=== PATIENT | male | born 1965 | race Caucasian/White ===

== ENCOUNTER → 2018-03-05 11:28 | Outpatient (CLI) | payer MEDICAID, SELFPAY ==
[2018-03-05 11:50] LABS: Basophils % 0.8 % (0.1-2.0); Eosinophils # 0.3 K/mm3 (0.0-0.4); Eosinophils % 6.6 % (0.1-12.0); Hematocrit 36.5 % (42.0-52.0); Hemoglobin 11.6 g/dL (14.1-18.0); Lymphocytes # 1.6 K/mm3 (0.7-4.5); Lymphocytes % 39.2 K/mm3 (10-50); Mean Corpuscular HGB Conc 31.9 g/dL (31.8-35.4); Mean Corpuscular Volume 97.1 fl (80-94); Mean Platelet Volume 7.7 fl (7.4-10.4); Monocytes # 0.4 K/mm3 (0.1-1.0); Monocytes % 10.4 % (1.7-9.3); Neutrophils # 1.8 K/mm3 (1.8-7.8); Neutrophils % 42.9 % (37.0-80.0); Platelet Count 248 K/mm3 (142-424); Red Blood Count 3.76 M/mm3 (4.60-6.20); Red Cell Distribution Width 15.2 % (11.5-17.5); White Blood Count 4.2 K/mm3 (4.8-10.8)
[2018-03-05 13:21] LABS: Alanine Aminotransferase 18 U/L (12-78); Albumin Level 3.4 gm/dL (3.4-5.0); Albumin/Globulin Ratio 0.8 (1.1-1.8); Alkaline Phosphatase 116 U/L (46-116); Anion Gap 14.3 mEq/L (5-15); Aspartate Amino Transferase 18 U/L (15-37); Bilirubin,Total 0.3 mg/dL (0.2-1.0); Blood Urea Nitrogen 9 mg/dL (7-18); C-Reactive Protein 1.9 mg/L (0.0-0.9); Calcium 8.7 mg/dL (8.5-10.1); Carbon Dioxide 27 mmol/L (21.0-32.0); Chloride 104 mmol/L (98-107); Creatinine,Serum 0.82 mg/dL (0.70-1.30); Estimated Glomerular Filt Rate 99 ml/min (>60); GFR (African American) 119 ML/MIN (>60); Globulin 4.2 gm/dl (1.3-3.2); Glucose 96 mg/dL (74-106); Potassium 4.3 mmoL/L (3.5-5.1); Sodium 141 mmol/L (136-145); Total Protein,Serum 7.6 gm/dL (6.4-8.2)
[2018-03-05 13:35] LABS: Vancomycin,Trough 10.5 mcg/ml (10.0-20.0)
[2018-03-05 17:06] LABS: Erythrocyte Sedimentation Rate 35 mm/hr (0-20)
== END ==
PROVIDERS: Visit Provider Internal Medicine
DX: R78.81 Bacteremia (principal)
CPT/HCPCS: 80053; 80202; 85025; 85651; 86140

== ENCOUNTER → 2018-03-12 12:51 | Outpatient (CLI) | payer MEDICAID, SELFPAY ==
[2018-03-12 13:44] LABS: Anion Gap 12.6 mEq/L (5-15); Blood Urea Nitrogen 12 mg/dL (7-18); Calcium 8.8 mg/dL (8.5-10.1); Carbon Dioxide 29 mmol/L (21.0-32.0); Chloride 101 mmol/L (98-107); Creatinine,Serum 0.67 mg/dL (0.70-1.30); Estimated Glomerular Filt Rate 125 ml/min (>60); GFR (African American) 151 ML/MIN (>60); Glucose 96 mg/dL (74-106); Potassium 3.6 mmoL/L (3.5-5.1); Sodium 139 mmol/L (136-145)
[2018-03-12 13:50] LABS: Vancomycin,Trough 9.9 mcg/ml (10.0-20.0)
== END ==
PROVIDERS: PCP Internal Medicine; Visit Provider Internal Medicine
DX: R78.81 Bacteremia (principal)
CPT/HCPCS: 80048; 80202

== ENCOUNTER 2023-12-26 22:18 | Emergency (ER) | payer MEDICAID, SELFPAY ==
[2023-12-26 22:30] VITALS: BP 110/81; PULSE 81; RESP 18; TEMP 36.5; O2SAT 100; BMI 21.2
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
[2023-12-26 22:56] LABS: Basophils # 0.1 K/mm3 (0-0.2); Basophils % 1.3 % (0.1-2.0); Eosinophils # 0.3 K/mm3 (0.0-0.4); Eosinophils % 4.4 % (0.1-12.0); Hematocrit 44.5 % (42.0-52.0); Hemoglobin 14.2 g/dL (14.1-18.0); Lymphocytes # 1.6 K/mm3 (0.7-4.5); Lymphocytes % 24.6 % (10-50); Mean Corpuscular HGB Conc 31.8 g/dL (31.8-35.4); Mean Corpuscular Volume 103.8 fl (80-94); Monocytes # 0.4 K/mm3 (0.1-1.0); Monocytes % 6.3 % (1.7-9.3); Neutrophils # 4.2 K/mm3 (1.8-7.8); Neutrophils % 63.5 % (37.0-80.0); Platelet Count 264 K/mm3 (142-424); Red Blood Count 4.29 M/mm3 (4.60-6.20); Red Cell Distribution Width 14.4 % (11.5-17.5); White Blood Count 6.6 K/mm3 (4.8-10.8)
[2023-12-26 23:05] LABS: Alanine Aminotransferase 39 U/L (12-78); Albumin Level 4.2 g/dl (3.5-5.0); Albumin/Globulin Ratio 1.4 (1.1-1.8); Alkaline Phosphatase 74 U/L (38-126); Anion Gap 12.7 mEq/L (5-15); Aspartate Amino Transferase 52 U/L (17-59); Bilirubin,Total 0.5 mg/dl (0.2-1.3); Blood Urea Nitrogen 15 mg/dl (9-20); Calcium 9.1 mg/dl (8.4-10.2); Carbon Dioxide 26 mmol/L (22.0-30.0); Chloride 108 mmol/L (98-107); Creatinine Clearance Estimated 76 mL/min (50-200); Estimated Glomerular Filt Rate 77 ml/min (>60); GFR (African American) 93 ML/MIN (>60); Globulin 3.1 g/dL (1.3-3.2); Glucose 71 mg/dl (74-100); Potassium 3.7 mmoL/L (3.5-5.1); Sodium 143 mmol/L (136-145); Total Protein,Serum 7.3 g/dl (6.3-8.2)
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
--- NOTE | 2023-12-26 23:24 | PC.NURSE ---
Report called to Anastacia at ER
[2023-12-26 23:46] VITALS: BP 128/73; PULSE 77; RESP 18; TEMP 36.5; O2SAT 99
--- NOTE | 2023-12-26 23:48 | PC.NURSE ---
Pt's son called and updated
== END 2023-12-26 23:50 | disposition short-term general hospital (02) ==
PROVIDERS: Physician Assistant; Emergency Provider Emergency Medicine; PCP Family Medicine
DX: S82.301A Unspecified fracture of lower end of right tibia, initial encounter for closed fracture (principal); S82.831A Other fracture of upper and lower end of right fibula, initial encounter for closed fracture; F17.210 Nicotine dependence, cigarettes, uncomplicated; V86.55XA Driver of 3- or 4- wheeled all-terrain vehicle (ATV) injured in nontraffic accident, initial encounter; Y92.9 Unspecified place or not applicable
CPT/HCPCS: 29505; 73560; 73590; 73610; 80053; 85025; 96374; 96376; 99285; J2270

== ENCOUNTER 2024-12-06 05:58 | Emergency (ER) | payer MEDICAID, SELFPAY ==
[2024-12-06 06:03] VITALS: BP 135/94; PULSE 82; RESP 18; TEMP 36.7; O2SAT 99
--- NOTE | 2024-12-06 06:06 | HMH.EDGENADL ---
Discharge Plan Disposition Patient Disposition: Home, Self-Care Prescriptions Prescriptions: New epinephrine [EpiPen 2-Xavier] 0.3 mg/0.3 mL auto-injector 0.3 mg IM Q10M PRN (Reason: anaphylaxis) Qty: 2 0RF Rx Instructions: for 2 doses Referrals Follow up/Referrals: Matheus Muir MD [Primary Care Provider, Medical] - See instructions Activity Restrictions/Add. Instructions Additional Instructions/Restrictions: Please follow-up with your primary care provider. Please return to the emergency department if you develop any new or worsening symptoms or become concerned for your health. Clinical Impressions Clinical Impression: Allergic reaction to bee sting Print Language Print Language: Albanian Discharge ED Provider: Cassius Gardiner General Adult HPI General Chief complaint: Allergic Reaction Stated complaint: bee sting R arm, allergic Time Seen by Provider: 12/06/24 06:00 History of Present Illness HPI narrative: 59-year-old male without significant past medical history presents for bee sting to the right arm. He reports the bee sting happened yesterday. 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 He presents today because he is feeling a little dizzy and is concerned it could be the bee sting. He denies any headache, nausea vomiting, diarrhea, tongue or throat swelling. He reports swelling at the site of the sting but otherwise has no symptoms besides mild dizziness. He denies any chest pain abdominal pain shortness of breath. Denies any other concerns. Related Data Previous Rx's ?Medication ?Instructions ?Recorded epinephrine 0.3 mg/0.3 mL 0.3 mg (0.3 mL) IM Q10M PRN 12/06/24 injection, auto-injector (EpiPen anaphylaxis #2 ea 2-Xavier) Allergies Allergy/AdvReac Type Severity Reaction Status Date / Time No Known Allergies Allergy Unverified 04/21/17 14:40 [facility] Disclaimer: The information contained in this section may have been updated after the patient was seen, as this information can be updated by other users. Social History (Updated 12/26/23 @ 23:30 by ELIZABETH Rodriguez) Smoking Status: Current every day smoker alcohol intake: never current occupational status: other Travel in the last 8 weeks?: None Have you lived/traveled outside [place] in past 30 days?: No Contact w/someone who lives/traveled outside US past 30 days?: No Exposure to someone with infectious disease in past 14 days?: No Do you have a fever (greater than 100.4 F or 38 C)?: No Have you tested positive for COVID-19?: No Exposed to someone with COVID-19 in past 14 days?: No Do you have a sore throat?: No Do you have a cough?: No Do you have any weakness?: No Do you have any diarrhea?: No Are you experiencing any unusual bleeding?: No Do you have any muscle aches/pain?: No Do you have any abdominal pain?: No Are you experiencing loss of taste or smell?: No ROS Obtained: Yes All systems reviewed & no additional complaints except as documented Physical Exam General General appearance: alert and in no apparent distress Head Head exam: atraumatic and normocephalic Eye Eye exam: Present normal appearance, PERRL and EOMI ENT ENT exam: Present normal oropharynx and normal external ear exam Neck Neck exam: Present normal inspection and full ROM Chest Chest inspection: Present normal inspection and symmetric chest wall rise; Absent tenderness Respiratory Respiratory exam: Present normal lung sounds bilaterally; Absent respiratory distress Cardiovascular Cardiovascular exam: Present regular rate and normal rhythm Abdominal Exam Abdominal exam: Present soft; Absent distention, tenderness or guarding Extremities Exam Extremities exam: Present edema (Local edema and swelling at the site of the bee sting on the right bicep); Absent joint swelling Back Exam Back exam: Present normal inspection; Absent tenderness Neurological Exam Neurological exam: Present alert and oriented X3; Absent motor sensory deficit Psychiatric Psychiatric exam: Present normal affect and normal mood Skin Skin exam: Present warm, dry and normal color Lymphatic Lymphatic Findings: no adenopathy Medical Decision Making Medical Records Medical records reviewed: Yes I reviewed the patient's medical records. Screening: Per USPSTF and CDC recommendations, given the prevalence of disease in our region, it is our hospital?s policy to screen for HIV and viral Hepatitis for all patients aged 18 and over and those with ongoing risk factors. [place] Inquiry Pt receiving controlled substance: No [place] was queried for this patient: No Vital Signs: 12/06/24 06:03 12/06/24 06:10 Temperature 98.0 F 98.0 F Temperature Source Oral Pulse Rate 84 Pulse Rate [Left Radial] 82 Respiratory Rate 18 16 Blood Pressure 136/84 Blood Pressure [Left Arm] 135/94 H Blood Pressure Mean [Left Arm] 107 Blood Pressure Source Automatic Cuff Blood Pressure Source [Left Arm] Automatic Cuff 02 Sat by Pulse Oximetry 99 Oxygen Delivery Method Nasal Cannula Room Air Lab Data Lab results reviewed: Yes I reviewed the patient's lab results. Medical Decision Narrative: 59-year-old male with history of severe allergy to bee stings presents 1 day after being stung by bee with mild dizziness, he is concerned that it could be a reaction to the bee sting. History was obtained via interactive discussion with patient, family. On arrival, patient is [afebrile, hemodynamically stable, satting appropriately, alert, oriented x4, GCS 15], moving all extremities spontaneously. Full physical exam performed and significant for local reaction at the site of the sting on the right arm, otherwise benign exam. Differential includes but is not limited to anaphylaxis, allergic reaction, vertigo, intracranial pathology, electrolyte derangement, intoxication,. I had extensive discussion with patient regarding her presentation. I am not concerned that he is having AN emergent or serious reaction to the bee sting at this time. I discussed that there could be other sources of dizziness but patient was most concerned about the bee sting and did not wish to pursue further workup such as lab work or imaging at this time. I discharged patient with a prescription for EpiPen. Return precautions given. Procedures Risk/Benefits of Procedure(s) Were Explained: Yes Critical Care Critical Care Time Critical Care Time: No
[2024-12-06 06:10] VITALS: BP 136/84; PULSE 84; RESP 16; TEMP 36.7; O2SAT 99
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
--- OUTSIDE RECORDS SUMMARY | 2024-12-06 06:12 | XMS_ITS | Clinical Summary ---
Author Organization [facility] Address [address] [place] [address] Care Team Providers Care Carbon Accountant Name Role Phone Chriss Muir MD Primary Care Provider Allergies No known active allergies Medications amLODIPine [...] to get utilities Not on file 09/02/19 24 Sex and Gender Information Value Date Recorded [...] Mass Index - - Plan of Treatment Health Maintenance Due Date Last Done Comments Colonoscopy 2010 PSA YEARLY 08/06/2015 Shingrix (#1) 08/06/2015 Pneumococcal 50+ (2 of 2 - PCV) 02/12/2018 02/12/2017 DTap,Tdap,and Td (2 - Td or Tdap) 10/21/2023 10/20/2013 Influenza Vaccine (#1) 2025 3, 02/13/2018, 02/01/2018, Additional history exists RSV Vaccine (60+ or ) (1 - 1-dose 75+ series) 2040 Pneumococcal 0-49 Discontinued 02/12/2017 HPV Aged Out No longer eligi ble based on patient's age to complete this topic Meningococcal conjugate valent 4 (MCV4) Aged Out No longer eligible based on patient's age to complete this topic RSV Immunization (<20 months) Aged Out No longer eligible based on patient's age to complete this topic Insurance [facility] MEDICAID Care Teams Carbon Accountant Relationship Specialty Start Date End Date Chriss Muir MD PCP - General Family Medicine 08/21/23
== END 2024-12-06 06:14 | disposition home or self-care (01) ==
PROVIDERS: Emergency Provider Emergency Medicine; PCP Family Medicine
DX: T63.441A Toxic effect of venom of bees, accidental (unintentional), initial encounter (principal); R42 Dizziness and giddiness; F17.200 Nicotine dependence, unspecified, uncomplicated
CPT/HCPCS: 99283